=== PATIENT | female | born 1995 | race Caucasian/White ===

== ENCOUNTER 2018-11-10 12:35 | Emergency (ER) | payer OTHER ==
[2018-11-10 12:46] VITALS: BP 121/74; PULSE 79; TEMP 98.2; BMI 38.9
--- NOTE | 2018-11-10 13:17 | PDOC ---
History of Present Illness - General Chief Complaint: Injury Stated Complaint: SLIP AND FALL Time Seen by Provider: 11/10/18 12:50 History Source: Patient Exam Limitations: No Limitations Past History - Past Medical History Allergies/Adverse Reactions: Allergies Allergy/AdvReac Type Severity Reaction Status Date / Time No Known Allergies Allergy Verified 11/10/18 12:47 Home Medications: Ambulatory Orders NK [No Known Home Medication] 11/10/18 Asthma: Yes COPD: No GI Disorders: Yes - Suicide/Smoking/Psychosocial Hx Smoking History: Never smoked Have you smoked in the past 12 months: No Hx Alcohol Use: No Drug/Substance Use Hx: Yes *Physical Exam - Vital Signs Last Vital Signs Temp Pulse Resp BP Pulse Ox 98.2 F 79 17 121/74 100 11/10/18 12:44 11/10/18 12:44 11/10/18 12:44 11/10/18 12:44 11/10/18 12:44 - Physical Exam Respiratory/Chest: positive: Lungs Clear, Normal Breath Sounds. negative: Respiratory Distress Cardiovascular: positive: Regular Rhythm, Regular Rate, S1, S2. negative: Murmur Gastrointestinal/Abdominal: positive: Soft. negative: Tender Musculoskeletal: positive: Other (small skin tear to anterior aspect of L knee, mild swelling, FROM of L knee, no joint laxity noted, no abrasions/lacerations, patient able to ambulate normally; LLE neurovascularly intact) Extremity: positive: Normal Range of Motion Integumentary: positive: Normal Color Neurologic: positive: Alert, Normal Mood/Affect Medical Decision Making - Medical Decision Making 23 y/o F hx of asthma presents with L knee injury after tripping down 5 steps of stairs today. Denies head/neck/other trauma, numbness/tingling. PE unremarkable No concern for fracture or dislocation Likely mild sprain L knee tarun-wrapped for support stable for dc 11/10/18 13:13 *DC/Admit/Observation/Transfer Diagnosis at time of Disposition: Knee injury Qualifiers: Encounter type: initial encounter Laterality: left Qualified Code(s): S89.92XA - Unspecified injury of left lower leg, initial encounter - Discharge Dispostion Disposition: HOME Condition at time of disposition: Stable Decision to Admit order: No - Referrals Referrals: Marla Bryant [Primary Care Provider] - 1 week - Patient Instructions Printed Discharge Instructions: DI for Knee Sprain Additional Instructions: Thank you for choosing [facility]. It was a pleasure taking care of you. You may take Motrin 600 mg every 6 hours by mouth as needed for mild to moderate pain. Take Motrin with food. Apply cold compresses for the first 48 hours. Then you may switch to warm compresses Keep leg elevated to help with swelling Return to the Emergency Department if your symptoms worsen or persist or have other concerning symptoms. - Post Discharge Activity Forms/Work/School Notes: Back to Work
== END 2018-11-10 13:22 | disposition home or self-care (01) ==
LOC: JERFT 12:35
DX: S89.82XA Other specified injuries of left lower leg, initial encounter (principal); W10.8XXA Fall (on) (from) other stairs and steps, initial encounter; Y93.89 Activity, other specified; Y92.89 Other specified places as the place of occurrence of the external cause; Y99.8 Other external cause status
CPT/HCPCS: 99281-25